=== PATIENT | female | born 1975 | race Caucasian/White ===

== ENCOUNTER 2017-05-22 10:12 | Inpatient (IN) ==
[2017-05-22] MEDS ORDERED: GENTAMICIN IV PER PHARMACY MISC SCH (13:00)
--- NOTE | 2017-05-22 13:12 | Diag Imaging Result Doc PS360 ---
CHEST-2 VIEWS - 05/22/2017 INDICATION: ABD. pain TECHNIQUE: COMPARISON: 04/18/2017 FINDINGS: Stable hyperexpanded lungs compatible with COPD. Stable scarring and suture lines in the right apex. No focal infiltrates, pneumothorax, or pleural effusion. Heart size is normal. IMPRESSION: COPD with pulmonary scarring. No change from prior. Electronically signed by Bradlye Mcmanus 05/22/2017 1:09 PM
[2017-05-22 13:21] LABS: MANUAL DIFF NEEDED? NO
[2017-05-22 13:28] LABS: BASO% 0.5 % (0.0-0.8); EOS# 0.16 X1000 (0.0-0.7); EOS% 2.1 % (0.0-10.0); HEMATOCRIT 42.2 % (37.0-47.0); HEMOGLOBIN 14.5 g/dL (12.0-16.0); LYMPH# 2.67 X1000 (1.2-3.4); MCHC 34.4 g/dL (33-37); MCV 95.9 FL (81-99); MONO# 0.52 X1000 (0.11-0.59); MONO% 6.8 % (1.7-9.3); MPV 9.8 FL (7.4-10.4); NEUT% 55.6 % (42.2-75.2); PLT 208 X1000 (130-400)
--- NOTE | 2017-05-22 13:48 | EKG Report ---
Test Performed on : 05/22/2017 1:07:03 PM Test Reason : abd. pain Blood Pressure : / mmHG Vent. Rate : 053 BPM Atrial Rate : 053 BPM P-R Int : 124 ms QRS Dur : 084 ms QT Int : 402 ms P-R-T Axes : 083 091 081 degrees QTc Int : 377 ms Sinus bradycardia. Rightward axis Borderline ECG When compared with ECG of 02-SEP-2014 12:06, Vent. rate has decreased BY 30 BPM Confirmed by Valery YEN, Braulio Rodriguez ([id number]) on 05/22/2017 5:01:41 PM
[2017-05-22] MEDS: D5 1/2 NS + KCL 10 MEQ 1,000 ML IV SCH (13:59)
[2017-05-22] MEDS: DILAUDID IV PRN ×2 (13:59→17:26)
[2017-05-22 14:10] LABS: AGAP 10; ALBUMIN 4.6 g/dL (3.5-5.0); ALKALINE PHOSPHATASE 61 U/L (32-104); BUN 17 mg/dL (8-22); CHLORIDE 105 mmol/L (98-107); COSMO 281; GOT 11 U/L (10-30); GPT 11 U/L (10-36); POTASSIUM 4.3 mmol/L (3.5-5.1); SODIUM 140 mmol/L (136-145); TCO2 25 mmol/L (25-35); TOTAL PROTEIN 6.2 g/dL (6.3-8.3)
[2017-05-22] MEDS ORDERED: ZOFRAN IV PRN ×2 (14:10→18:04)
[2017-05-22 15:26] LABS: URINE SOURCE CATH
[2017-05-22 15:44] LABS: BILIRUBIN URINE NEGATIVE (NEGATIVE); BLOOD URINE MODERATE (NEGATIVE); COLOR BROWN; GLUCOSE URINE NEGATIVE (NEGATIVE); LEUKOCYTES URINE TRACE (NEGATIVE); NITRITE URINE NEGATIVE (NEGATIVE); PH URINE 6.5; PROTEIN URINE 100 mg/dL (NEGATIVE); SP GRAVITY URINE 1.019; TURBIDITY URINE TURBID (CLEAR); UR EPITHELIAL CELLS <10 /HPF (<10); URINE BACTERIA NEGATIVE /HPF; URINE CULTURE NEEDED? YES; URINE MICRO REVIEW NEEDED? YES; URINE RBC TNTC /HPF (<10); URINE WBC <10 /HPF (<10); UROBILINOGEN URINE NORMAL (NORMAL)
[2017-05-22 15:52] LABS: URINE CASTS NONE SEEN; URINE CRYSTALS NONE SEEN; URINE SMALL ROUND CELLS NONE SEEN
[2017-05-22] MEDS: GENTAMICIN IV SCH (17:26)
[2017-05-22] MEDS: NS IV SCH (17:26)
[2017-05-22] MEDS ORDERED: SYMBICORT 80/4.5 MICROGM INHALER INH PRN (17:57)
[2017-05-22] MEDS: PROTONIX IV SCH (18:11)
[2017-05-22] MEDS: SODIUM CHLORIDE 0.9% INJ SCH (18:11)
--- NOTE | 2017-05-22 19:33 | HISTORY AND PHYSICAL ---
HISTORY OF PRESENT ILLNESS: Ms. Vera is a 41-year-old, white female who comes to the office with severe hematuria and lower abdominal pain. She was seen by two physicians at two different emergency rooms over the weekend. They did a CAT scan and told her to see her family doctor. When she came in, she had smoky colored urine. She was in a lot of pain and so we have admitted her to the hospital. PAST MEDICAL HISTORY: Reveals a history of degenerative disc disease in the lumbar spine, history of COPD, degenerative disc disease in the cervical spine as well as pain in both shoulders. PAST SURGICAL HISTORY: History of rupture on the right side with a chest tube put in, in the past. She had partial hysterectomy according to her and tonsillectomy. History of 4 kidney stones. She was seen by Dr. Plata in the past who did some instillations in the bladder to help make the bladder lining thicker. Other details are noncontributory. SOCIAL HISTORY: She is a heavy smoker. She does not drink. MEDICATIONS: Hydrocodone, nitrofurantoin, Symbicort, alprazolam, and albuterol sulfate p.r.n. REVIEW OF SYSTEMS: Other than pain, weakness and hematuria, it is noncontributory. She also has persistent nausea. PHYSICAL EXAMINATION: VITAL SIGNS: Temperature normal, pulse is 57, respiratory rate 16 per minute, blood pressure 126/56. HEENT: Head normocephalic. Pupils PERRLA. Fundus examination not done. ENT examination unremarkable. NECK: Supple. JVP normal. There is no evidence of lymphadenopathy, thyroid enlargement. EXTREMITIES: No evidence of pedal edema, calf tenderness, anemia, cyanosis or clubbing. Pedal pulses well felt. BREASTS: Examination normal. CHEST: Normal on inspection. LUNGS: Clear to auscultation. PMI in the normal position. HEART: Sounds normal. No murmur, gallop or rub noted. ABDOMEN: Distended. There is definite tenderness in the suprapubic area. No guarding, rigidity, free fluid, masses, or organomegaly. Bowel sounds normal. RECTAL EXAMINATION: Deferred. CENTRAL NERVOUS SYSTEM: Higher functions normal. Cranial nerves normal. Motor and sensory system examination unremarkable. Deep tendon reflexes normal. Plantars downgoing. Skull and spine examination normal for age. No cerebellar signs or signs of meningeal irritation. LOCOMOTOR EXAMINATION: Unremarkable. SKIN EXAMINATION: Unremarkable. CLINICAL IMPRESSION: 1. Persistent hematuria. 2. Abdominal pain. 3. History of kidney stones. Possible cystitis, possible ureteric or bladder stones. PLAN: Get IV fluids started and put a catheter in. We will get a Urology consultation with Dr. Timmons. cc: Julien Owens MD
--- NOTE | 2017-05-22 20:50 | Diag Imaging Result Doc PS360 ---
EXAM: KUB ABDOMEN - 05/22/2017 HISTORY: Hematuria TECHNIQUE: AP spine abdomen COMPARISON: 01/02/2013 FINDINGS: The bowel gas pattern appears nonspecific and nonobstructive. There is apparent mild distention of the stomach. There are some retained fecal debris in the colon. There is a small calcification the right true pelvis which is stable, compatible phlebolith. There is no discrete calcified urinary tract stone identified, although the retained fecal debris could obscure the visualization renal stones. IMPRESSION: Nonspecific bowel gas pattern. No obvious calcified renal stone. If occult renal stone suspected clinically, CT renal stone search could be considered. Electronically signed by Romel Gordillo 05/22/2017 8:47 PM
--- NOTE | 2017-05-22 20:54 | CONSULTATION ---
DATE OF CONSULTATION: 05/22/2017 CONTINUATION CURRENT MEDICATIONS: 1. [place] 10. 2. Ventolin inhaler. 3. Xanax. 4. Symbicort inhaler. 5. Dilaudid. 6. Zofran. 7. Protonix. 8. Gentamicin. PAST SURGICAL HISTORY: Thoracotomy with partial lobectomy for lung blebs, multiple stone surgeries (ureteroscopies and stone extractions), tubal ligation with hysterectomy, tonsillectomy. SOCIAL HISTORY: No tobacco use since 2013. ETOH use negative. ALLERGIES: She is allergic to Levaquin, morphine, oxycodone, penicillins. REVIEW OF SYSTEMS: She denies any problems with hypertension, diabetes, strokes or seizures. She states she has a ventricular septal defect with Marfan syndrome. PHYSICAL EXAMINATION: General: A thin, age apparent, normally developed white female, oriented in all ways and cooperative. HEENT: Normal for age. Lungs: With scattered rhonchi. No rales. Cardiovascular: Regular rate and rhythm. Abdomen: Flat, soft, nontender. No hepatosplenomegaly or masses. Back: Mild right CVA tenderness. : Deferred until surgery. Extremities: No CC or E. Neurologic: No focal deficits. LABORATORY EVALUATION: White count 7.63, hemoglobin 14.5, hematocrit 42.2, platelets 108,000. Serum electrolytes are completely normal. BUN 17, creatinine 1.0, glucose 103. Her urinalysis has a dipstick positive for hemoglobin. Microscopic exam has too numerous to count red cells. This is a catheterized specimen. IMPRESSION: 1. Intermittent gross hematuria and microhematuria. 2. History of renal lithiasis. 3. History of interstitial cystitis. 4. Right back and flank pain. RECOMMENDATIONS: Recommend CT urogram and then cystoscopic exam with bilateral retrograde pyelograms. If a stone is present in the ureters, will do ureteroscopy and stone extraction. If it is in the kidney and large enough, scheduled shock wave lithotripsy. Thank you for this consultation. cc: MD Julien Knight MD
[2017-05-22] MEDS ORDERED: XANAX XR PO PRN (21:00)
[2017-05-23] MEDS: D5 1/2 NS + KCL 10 MEQ 1,000 ML IV SCH ×2 (06:09→21:32)
[2017-05-23] MEDS: NORCO-10 PO PRN ×2 (06:15→14:46)
[2017-05-23] MEDS: VENTOLIN HFA INH PRN ×2 (06:25→19:25)
--- NOTE | 2017-05-23 08:21 | Diag Imaging Result Doc PS360 ---
CT ABDOMEN/PELVIS W/WO CONTRAS - 05/23/2017 INDICATION: hematuria TECHNIQUE: A CT dose reduction protocol was used. COMPARISON: None FINDINGS: On the noncontrast exam, there is a 1 mm nonobstructing left renal stone, image #[id number]. On the contrast-enhanced exam, the lung bases are clear and the heart size is normal. There are bilateral renal cysts. No hydronephrosis or hydroureter. Kidneys otherwise enhance normally. The liver, gallbladder, spleen, pancreas, and adrenals are normal. No bowel obstruction or inflammation. There is trace physiologic pelvic free fluid. Uterus is absent. Urinary bladder is collapsed and otherwise appears normal. Rectum is normal. There are moderate degenerative changes of the spine. No acute or suspicious bony lesion. IMPRESSION: Tiny 1 mm nonobstructing left renal stone. Benign renal cysts. Otherwise negative exam. Electronically signed by Bradley Mcmanus 05/23/2017 8:19 AM
--- NOTE | 2017-05-23 09:47 | PROGRESS NOTE ---
DATE: 05/23/2017 Ms. Vera is feeling better. She has a tiny kidney stone in the left kidney. She continues to have hematuria and some suprapubic tenderness. She could not tolerate Dilaudid. She is taking [place] that is a hydrocodone product she is on IV gentamicin. The cultures are not back yet. -1 cc: Julien Owens MD
[2017-05-23] MEDS ORDERED: NICODERM PATCH TD PRN (10:39)
[2017-05-23] MEDS: GENTAMICIN IV SCH ×2 (19:00→19:24)
[2017-05-23] MEDS: NS IV SCH ×2 (19:00→19:24)
[2017-05-23] MEDS: SODIUM CHLORIDE 0.9% INJ SCH (19:01)
[2017-05-23] MEDS: PROTONIX IV SCH ×2 (19:01→19:24)
--- NOTE | 2017-05-24 09:32 | PROGRESS NOTE ---
DATE: 05/24/2017 Ms. Vera is doing fairly well this morning. She, yesterday, had a fit about smoking. I told her she cannot smoke according to the hospital rules and regulations. She had gone out even across the street with the IV pole to go to smoke. She is on a NicoDerm patch. She was seen by Dr. Timmons. After I discharged her last night, she was seen by Dr. Timmons who promised her that she would get the cystoscopy done in the morning and she decided to stay. If there is no significant finding or no further procedures to be done, we will probably discharge her after cystoscopy. So far, the microbiology is negative for urine culture growth. She has gross hematuria. -6 cc: Julien Owens MD
[2017-05-24] MEDS ORDERED: DIPRIVAN 1% ONE (10:08)
[2017-05-24] MEDS ORDERED: XYLOCAINE-MPF 2% ONE (10:10)
[2017-05-24] MEDS ORDERED: REGLAN ONE (10:20)
[2017-05-24] MEDS ORDERED: PEPCID ONE (10:20)
[2017-05-24] MEDS ORDERED: NEOSPORIN G.U. IRRIGANT ONE (10:27)
[2017-05-24] MEDS ORDERED: ZOFRAN ONE (10:46)
[2017-05-24] MEDS ORDERED: DECADRON ONE (10:46)
[2017-05-24] MEDS ORDERED: FENTANYL ONE (10:48)
[2017-05-24] MEDS: DILAUDID ONE ×3 (11:48→12:05)
--- NOTE | 2017-05-24 12:03 | Diag Imaging Result Doc PS360 ---
RETROGRADES 2 OR 3 FILMS - 05/24/2017 INDICATION: SULTANA. RETROGRADES, RT. SIDE GROSS HEMATURIA, PUT UP RT. STENT TECHNIQUE: The exam was performed by the patient's urologist. 56 seconds fluoroscopy time was used. 35 images were obtained. COMPARISON: CT from 05/23/2017 FINDINGS: The ureters and renal collecting systems are normal bilaterally. A right nephroureteral stent was placed in normal position. IMPRESSION: No complication. Electronically signed by Bradley Mcmanus 05/24/2017 12:01 PM
[2017-05-24 12:58] VITALS: BP 137/89
[2017-05-24] MEDS ORDERED: DITROPAN PO PRN (13:23)
--- NOTE | 2017-05-24 15:13 | OPERATIVE NOTE ---
PROCEDURE DATE: 05/24/2017 SURGEON: Javier Timmons MD. PREOPERATIVE DIAGNOSIS: Intermittent gross hematuria. POSTOPERATIVE DIAGNOSIS: Intermittent gross hematuria with bleeding from the right renal collecting. PROCEDURES PERFORMED: 1. Cystoscopic exam. 2. Bilateral retrograde ureteral pyelograms. 3. Right ureteroscopy. 4. [place] of the right renal pelvis. 5. [place] biopsy of the right renal pelvis and 3-German cold cup biopsies of the right renal pelvis. 6. Place right double-J stent. ANESTHESIA: General via laryngeal mask. FINDINGS: Cystoscopic exam: Urethra-greater than 21 German without stricture. Bladder - normal ureteral orifices bilaterally with bloody efflux from the right ureteral orifice. No papillary lesions. No trabeculations. No diverticula. Left retrograde ureteral pyelogram normal without filling defect. Right retrograde ureteral pyelogram reveals a subtle filling defect in the right renal pelvis and lower pole area. Right ureteroscopy reveals a normal ureter up through the ureteropelvic junction. The mucosa of the renal pelvis appeared somewhat thickened but the lower part could not be visualized with the semi-rigid scope, the area where the filling defect was not completely visualized. exam: Normal external female. Normal mucosa. No adnexal masses. Surgically absent cervix and uterus. Palpably normal bladder. INDICATION FOR PROCEDURE: This 41-year-old female has a history of intermittent gross hematuria. A CT urogram revealed a 1 mm left renal stone. Otherwise no abnormalities. She continues with the intermittent hematuria. DESCRIPTION OF PROCEDURE: After informed consent was obtained from the patient and her receiving IV antibiotics, she was taken to the main OR cystoscopy room and placed in the supine position. General anesthesia via laryngeal mask was achieved. She was then placed in the low lithotomy position and prepped and draped in the usual sterile fashion for cystoscopic exam. A 21-German cystoscope was passed through the patient's urethra and in the bladder. Findings noted above. An 8-German cone-tipped catheter was passed through the cystoscope, engaged the left ureteral orifice. Contrast was injected. Again, no filling defects or other abnormalities noted on the right side. The ureter filled completely normally. The renal collecting system filled normally. However, on the drain film, it appeared there was a filling defect in the mid and lower portion of the renal pelvis. There was also a relative narrowing of the ureteropelvic junction. After the retrograde pyelograms were performed, the 8-German cone-tipped catheter was removed and because of the bleeding from the right collecting system a 0.035 zip wire was passed through the cystoscope, engaged the right ureteral orifice, advanced up into the kidney. The cystoscope was removed leaving the zip wire in place to act as a safety wire. A 7-German Storz semi-rigid ureteroscope was advanced to the patient's urethra and in to the bladder. A 0.035 Sensor wire was passed through the ureteroscope and into the ureter. The ureteroscope was advanced over the Sensor wire and up into the ureter and slowly advanced all way up to the right kidney. There were no abnormalities of the right ureter noted. When the scope passed into the renal pelvis there was no bright red blood coming from anywhere. The renal pelvis mucosa appeared somewhat thickened on the lateral portion of the renal pelvis. The renal pelvis was washed and the washings were sent to pathology for cytological analysis. A brush was placed and the thickened mucosal area was brushed. Then a 3-German cold cup biopsy forceps were placed and 5 biopsies of this area were obtained. These were sent to pathology in 1 container. They were again very small, being 3- German. Attempts were made to see down towards the lower pole without success with this semi- rigid scope. The ureteroscope was removed. A 6-German, 24 cm double-J stent was passed over the zip wire and up into the kidney. The renal end was verified by fluoroscopic exam, bladder end directly visualized. Stent removal string was removed. The bladder was drained. Cystoscope was removed. exam performed. She tolerated the procedure well. Estimated blood loss was less than 5 mL. She was taken to recovery room in good condition. cc: MD Julien Knight MD
[2017-05-24] MEDS ORDERED: GENTAMICIN IV SCH (20:00)
[2017-05-24] MEDS ORDERED: NS IV SCH (20:00)
--- NOTE | 2017-05-25 10:21 | DISCHARGE SUMMARY ---
ADMISSION DATE: 05/22/2017 DISCHARGE DATE: 05/24/2017 HISTORY AND HOSPITAL COURSE: Ms. Vera was admitted with severe hematuria. A chest x-ray revealed the presence of emphysema. EKG revealed sinus bradycardia, right axis deviation. X-ray: KUB revealed presence of a possible small calcification in the right true pelvis compatible with phlebolith. No discrete calcified urinary tract stone identified. Retrograde pyelogram revealed no complication, findings of right nephroureteral stent was placed in the normal position. CT scan of the abdomen and pelvis revealed a tiny, 1 mm, nonobstructing left renal stone. No renal cysts were noted. She was seen by Dr. Timmons who did cystoscopy and operative notes revealed normal urethra. Bladder was really unremarkable. Cystoscopy was really unremarkable. A 3-Amharic cold cup biopsy forceps were placed and 5 biopsies were taken. During the course in the hospital, her culture studies, the microbiology came back negative, and CBC was unremarkable. Chemistry was negative. Toxicology: Gentamicin levels were normal. Urine showed RBCs. Dr. Timmons did a cystoscope today and retrograde pyelogram, and she was discharged. FINAL DIAGNOSES: 1. Hematuria. 2. Left kidney stone. 3. Emphysema. 4. Anxiety state. 5. 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 cc: Julien Owens MD
--- NOTE | 2017-06-01 05:51 | DISCHARGE SUMMARY ---
ADMISSION DATE: 05/22/2017 DISCHARGE DATE: 05/24/2017 DISCHARGE SUMMARY ADDENDUM: She was admitted with severe hematuria. She had a right renal pelvis biopsy. 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 cc: Julien Owens MD
== END 2017-05-24 13:00 | disposition home or self-care (01) ==
LOC: DIRADM 10:12 → 3N 11:46
PROVIDERS: ADMIT Internal Medicine; ATTEND Internal Medicine